=== PATIENT | male | born 1995 | race Caucasian/White ===

== ENCOUNTER 2023-09-04 19:46 | Emergency (ER) | payer SELFPAY ==
[~2023-09-04] VITALS: Ht 175.3 cm; Wt 68.8 kg
[2023-09-04 19:56] VITALS: TEMP 98; O2SAT 99
[2023-09-04 21:21] VITALS: BP 103/73; PULSE 98; RESP 18
[2023-09-04] MEDS: HYDROCODONE/ACETAMINOPHEN 10/325MG TABLET PO ONE (21:21)
== END 2023-09-04 22:11 | disposition home or self-care (01) ==
LOC: ER 19:46
DX: S82.892A Other fracture of left lower leg, initial encounter for closed fracture (principal); X58.XXXA Exposure to other specified factors, initial encounter; Y93.89 Activity, other specified; Y92.89 Other specified places as the place of occurrence of the external cause; Y99.8 Other external cause status
CPT/HCPCS: 29505; 99283

== ENCOUNTER 2024-04-29 17:31 | Emergency (ER) | payer MEDICAID ==
[~2024-04-29] VITALS: Ht 172.7 cm; Wt 63.5 kg
[2024-04-29 17:41] VITALS: BP 144/90; PULSE 91; RESP 16; TEMP 97.9; O2SAT 99
== END 2024-04-30 01:59 | disposition left against medical advice (07) ==
LOC: ER 17:31
DX: S99.921A Unspecified injury of right foot, initial encounter (principal); Z53.21 Procedure and treatment not carried out due to patient leaving prior to being seen by health care provider; W22.8XXA Striking against or struck by other objects, initial encounter; Y93.89 Activity, other specified; Y92.89 Other specified places as the place of occurrence of the external cause; Y99.8 Other external cause status

== ENCOUNTER 2024-05-12 12:31 | Emergency (ER) | payer MEDICAID ==
[~2024-05-12] VITALS: Ht 172.7 cm; Wt 63.0 kg
[2024-05-12 12:50] VITALS: BP 119/83; PULSE 99; RESP 16; TEMP 98; O2SAT 99
== END 2024-05-12 17:31 | disposition left against medical advice (07) ==
LOC: ER 12:31
DX: M79.672 Pain in left foot (principal); Z53.21 Procedure and treatment not carried out due to patient leaving prior to being seen by health care provider

== ENCOUNTER 2024-07-15 14:37 | Emergency (ER) | payer MEDICAID ==
[~2024-07-15] VITALS: Ht 172.7 cm; Wt 77.0 kg
[2024-07-15 14:46] VITALS: O2SAT 100
[2024-07-15 14:59] VITALS: TEMP 36.9; O2SAT 98
[2024-07-15 18:00] VITALS: BP 117/66; PULSE 85; RESP 16; TEMP 98.4
[2024-07-15] MEDS: KETOROLAC 30MG/ML VIAL IM STA (18:00)
[2024-07-15] MEDS: ACETAMINOPHEN 325MG TABLET PO STA (18:00)
[2024-07-15] MEDS ORDERED: NAPR-681 PO (20:57)
== END 2024-07-15 21:25 | disposition home or self-care (01) ==
LOC: ER 15:20
DX: R10.9 Unspecified abdominal pain (principal)
CPT/HCPCS: 76705; 96372; 99285; J1885; Z7610

== ENCOUNTER 2024-07-22 20:06 | Emergency (ER) | payer MEDICAID ==
[~2024-07-22] VITALS: Ht 172.7 cm; Wt 75.0 kg
[~2024-07-22 20:06] MED LIST: NAPR-681 PO
[2024-07-22 20:08] VITALS: O2SAT 99
[2024-07-22 20:56] VITALS: BP 130/93; PULSE 86; RESP 17; TEMP 37.7; O2SAT 100
[2024-07-22 21:12] LABS: CHLORIDE 101 mEq/L (98-107); POTASSIUM 3.4 mEq/L (3.5-5.1); SODIUM 141 mEq/L (136-145)
[2024-07-22 21:13] LABS: CALCIUM 10.5 mg/dL (8.7-10.4); CARBON DIOXIDE 25 mEq/L (21-32)
[2024-07-22 21:18] LABS: CREATININE 1.3 mg/dL (0.6-1.3); GLUCOSE 88 mg/dL (70-105); UREA NITROGEN BLOOD 17 mg/dL (9-23)
[2024-07-22 21:23] LABS: ETHANOL BLOOD < 10 mg/dL (<10)
[2024-07-22] MEDS: SODIUM CHLORIDE 0.9% 1,000 ML IV ONE (21:24)
[2024-07-22] MEDS: LORAZEPAM 2MG/ML INJ IV ONE (21:39)
[2024-07-22 22:12] LABS: BASOPHILS % 0.4 % (0.0-2.0); EOSINOPHILS % 0.8 % (0.0-5.0); HEMATOCRIT. 41.5 % (42.0-52.0); HEMOGLOBIN. 14.3 g/dL (14.0-18.0); LYMPHOCYTES % 17.1 % (20.0-50.0); MEAN CORPUSCULAR HEMOGLOBIN 30.5 pg (28.0-32.0); MEAN CORPUSCULAR HGB CONC 34.5 g/dL (31.0-37.0); MEAN CORPUSCULAR VOLUME 88.4 fL (80.0-94.0); MEAN PLATELET VOLUME 7.2 fl (7.4-10.4); MONOCYTES % 8.9 % (2.0-8.0); NEUTROPHILS % 72.8 % (40.0-76.0); PLATELET 605 x1000/uL (130-400); RED BLOOD CELL COUNT 4.69 mill/uL (4.7-6.1); RED CELL DISTRIBUTION WIDTH 13.6 % (11.6-14.6); WHITE BLOOD COUNT 11.3 x1000/uL (4.5-11.0)
[2024-07-22 22:56] LABS: CLARITY URINE CLEAR (CLEAR); COLOR URINE YELLOW (YELLOW); GLUCOSE URINE NEGATIVE (NEGATIVE); KETONES URINE 2+ (NEGATIVE); LEUKOCYTE ESTERASE URINE TRACE (NEGATIVE); NITRITE URINE NEGATIVE (NEGATIVE); OCCULT BLOOD URINE NEGATIVE (NEGATIVE); PH URINE 7.5 (4.5-8.0); PROTEIN URINE TRACE (NEGATIVE); SPECIFIC GRAVITY URINE 1.026 (1.005-1.030)
[2024-07-22 23:09] LABS: *AMPHETAMINES SCREEN URINE PRESUMPTIVE POSITIVE (NEGATIVE); *BARBITURATES SCREEN URINE NEGATIVE (NEGATIVE); *BENZODIAZEPINES SCREEN URINE NEGATIVE (NEGATIVE); *COCAINE SCREEN URINE NEGATIVE (NEGATIVE); CANNABINOID URINE SCREEN PRESUMPTIVE POSITIVE (NEGATIVE); ECSTASY MDMA SCREEN URINE CONF.TEST INDICATED (NEGATIVE); METHADONE URINE SCREEN NEGATIVE (NEGATIVE); OPIATES URINE SCREEN NEGATIVE (NEGATIVE); PHENCYCLIDINE URINE SCREEN NEGATIVE (NEGATIVE)
[2024-07-22 23:23] LABS: BACTERIA URINE NONE SEEN; RBC URINE NONE SEEN /hpf (0-2); SQUAMOUS EPITHELIAL CELL URINE FEW /lpf (RARE/1+); WBC URINE 0-2 /hpf (0-2)
== END 2024-07-23 00:50 | disposition home or self-care (01) ==
LOC: ER 20:06
DX: F15.10 Other stimulant abuse, uncomplicated (principal); F12.90 Cannabis use, unspecified, uncomplicated; Z79.899 Other long term (current) drug therapy
CPT/HCPCS: 80305; 80048; 81003; 80320; 85025; 36415; 71045; 96361; 96374; 99284; J2060; J7030; Z7610; G0480

== ENCOUNTER 2024-08-13 04:00 | Emergency (ER) | payer MEDICAID ==
[2024-08-13] MEDS: ONDANSETRON 4MG ODT PO ONE (07:49)
[2024-08-13] MEDS ORDERED: ONDA-239 PO (09:26)
[2024-08-13] MEDS ORDERED: IMOD MT (09:26)
[2024-08-13 09:54] VITALS: BP 105/74; PULSE 85; RESP 19; TEMP 36.6; O2SAT 99
[2024-08-15 04:10] LABS: CHLAMYDIA TRACHOMATIS NAA Negative (Negative); NEISSERIA GONORRHOEAE NAA Negative (Negative)
== END 2024-08-13 09:55 | disposition home or self-care (01) ==
LOC: ER 04:00
DX: R19.7 Diarrhea, unspecified (principal); F12.90 Cannabis use, unspecified, uncomplicated; F15.90 Other stimulant use, unspecified, uncomplicated; Z11.3 Encounter for screening for infections with a predominantly sexual mode of transmission; Z59.00 Homelessness unspecified
CPT/HCPCS: 99283; 87491; 87591; Q0162